=== PATIENT | female | born 1970 | race Caucasian/White ===

== ENCOUNTER 2019-02-08 16:34 | Outpatient (CLI) | payer OTHER ==
--- NOTE | 2019-02-09 14:23 | MRI Report ---
Reason: CARPAL TUNNEL SYNDROME, UNSPECIFIED UPPER LIMB Procedure Date: 02/08/2019 Accession Number: [id number] / [id number] Procedure: MRI - Wrist LT W/O CPT Code: FULL RESULT: EXAM: LEFT WRIST MRI WITHOUT CONTRAST EXAM DATE: 02/08/2019 05:45 PM. CLINICAL HISTORY: Carpal tunnel syndrome, unspecified upper limb. COMPARISON: None. TECHNIQUE: Multiplanar, multisequence T1-weighted and fluid-sensitive sequences of the wrist without contrast. Other: None. FINDINGS: Bones: No fractures or subluxations. No marrow edema. No bone lesions. Cartilage: There is subchondral cyst formation in the distal pole of the scaphoid at the triscaphe joint consistent with moderate osteoarthritis. The hyaline cartilage appears otherwise unremarkable. The triangular fibrocartilage complex is unremarkable. Ligaments: The scapholunate and lunotriquetral ligaments are intact. The visualized other intrinsic, extrinsic and collateral ligaments are unremarkable. Tendons: The extensor carpi ulnaris appears slightly thickened suggestive of low-grade tendinosis. The remaining tendons appear unremarkable. Musculature: No edema or fatty atrophy. Other: The contents of the carpal tunnel, including the median nerve, are unremarkable. Guyons canal is unremarkable. No ganglion cysts. No joint effusions. The subcutaneous tissues are unremarkable. IMPRESSION: 1. Moderate osteoarthritis of the triscaphe joint. 2. Possible low-grade tendinosis of the extensor carpi ulnaris. RADIA
--- NOTE | 2019-02-09 14:23 | MRI Report ---
Reason: CARPAL TUNNEL SYNDROME, UNSPECIFIED UPPER LIMB Procedure Date: 02/08/2019 Accession Number: [id number] / [id number] Procedure: MRI - Hand LT W/O CPT Code: FULL RESULT: EXAM: LEFT HAND MRI WITHOUT CONTRAST EXAM DATE: 02/08/2019 06:06 PM. CLINICAL HISTORY: Carpal tunnel syndrome, unspecified upper limb. COMPARISON: None. TECHNIQUE: Multiplanar, multisequence T1-weighted and fluid-sensitive sequences of the hand without contrast. Other: None. FINDINGS: Bones: No fractures or subluxations. No marrow edema. No bone lesions. Cartilage: The articular cartilage is unremarkable. Ligaments: The visualized collateral ligaments are intact. Tendons: The flexor and extensor tendons are unremarkable. Musculature: No edema or fatty atrophy. Other: No joint effusions. There is mild subcutaneous edema overlying the dorsal aspect of the first metacarpal phalangeal joint and metacarpal shaft. The finding is nonspecific, and may indicate trauma or inflammation. IMPRESSION: 1. Subcutaneous edema in the region of interest, with no visible mass. RADIA
== END 2019-02-08 16:35 | disposition home or self-care (01) ==
LOC: DI 16:34
PROVIDERS: ATTEND Family Medicine
DX: G56.02 Carpal tunnel syndrome, left upper limb (principal); M19.032 Primary osteoarthritis, left wrist; M25.442 Effusion, left hand

== ENCOUNTER 2019-06-22 06:12 | Day surgery (SDC) | payer OTHER ==
[2019-06-22] MEDS ORDERED: MIDAZOLAM 2 MG/2 ML VIAL IVP ONE (06:13)
[2019-06-22] MEDS ORDERED: KETOROLAC 30 MG/ML VIAL IVP ONE (06:13)
[2019-06-22] MEDS ORDERED: PROPOFOL 200 MG/20 ML VIAL IVP ONE (06:13)
[2019-06-22] MEDS ORDERED: fentaNYL 100 MCG/2 ML VIAL IVP ONE (06:13)
[2019-06-22] MEDS ORDERED: CEFAZOLIN SODIUM IN 0.9 % NACL 2 GM/100 ML BAG IV ONE (06:33)
[2019-06-22] MEDS ORDERED: LACTATED RINGERS 1,000 ML IV ONE (06:54)
--- NOTE | 2019-06-22 07:13 | ANESTHESIA ---
Pre-Anesthesia VS, & Labs - Diagnosis Left carpal tunnel syndrome - Procedure Left right carpal tunnel release Vital Signs: Temp Pulse Resp BP Pulse Ox 37 C 96 18 135/85 H 95 06/22/19 06:25 06/22/19 06:25 06/22/19 06:25 06/22/19 06:25 06/22/19 06:25 Height 5 ft 2 in Weight (kg) 65.3 kg - NPO >8 hours - Is Patient ?: Waiver signed - Lab Results Current Lab Results: Laboratory Tests 06/22/19 06:49: POC Whole Bld Glucose 260 H Home Medications and Allergies Home Medications: Ambulatory Orders Acetaminophen [Tylenol] 650 mg VT 06/22/19 raNITIdine HCl [Zantac] 150 mg PO 06/22/19 Paroxetine HCl [Paxil] 1 tab PO DAILY 04/15/16 Simvastatin [Zocor] 1 tab PO DAILY 04/15/16 metFORMIN [Glucophage] 500 mg PO BID 04/15/16 Acetaminophen [Tylenol] 650 mg VT 06/22/19 raNITIdine HCl [Zantac] 150 mg PO 06/22/19 Allergies/Adverse Reactions: Allergies Allergy/AdvReac Type Severity Reaction Status Date / Time No Known Drug Allergies Allergy Verified 04/15/16 20:12 Anes History & Medical History - Anesthetic History Anesthesia Complications: reports: No previous complications - Medical History Cardiovascular: reports: High cholesterol Pulmonary: reports: None Gastrointestinal: reports: None Urinary: reports: None Neuro: reports: None Musculoskeletal: reports: None Endocrine/Autoimmune: reports: Type 2 diabetes Blood Disorders: reports: None Skin: reports: None Smoking Status: Current every day smoker (1 pack per day for 30 years) Psychosocial: reports: Anxiety, Alcohol (1-2 drinks per week) - Surgical History Eyes Ears Nose Throat (EENT): Tonsil/Adenoidectomy Gynecologic: section, Endometrial ablation Orthopedic: Carpal Tunnel surgery Exam General: Alert, Oriented x3, Cooperative, No acute distress Dental: WNL Mouth Openin Fingerbreadth Neck Mobility: Normal Mallampati classification: I Thyromental Distance: 4-6 cm Respiratory: Lungs clear, Normal breath sounds, No respiratory distress, No accessory muscle use Cardiovascular: Regular rate, Normal S1, Normal S2, No murmurs Mental/Cognitive Status: Alert/Oriented X3, Normal for patient Plan Anesthesia Type: General Consent for Procedure(s) Verified and Reviewed: Yes Code Status: Attempt Resuscitation ASA classification: 2-Mild systemic disease Is this case an emergency?: No
[2019-06-22] MEDS ORDERED: BUPIVACAINE 0.25% PF 30 ML VIAL ONE (07:24)
[2019-06-22] MEDS ORDERED: BUPIVACAINE 0.25% PF 30 ML VIAL SUBQ ONE (08:02)
[2019-06-22] MEDS ORDERED: oxyCODONE 5 MG TABLET PO PRN (08:20)
[2019-06-22] MEDS ORDERED: ONDANSETRON 4 MG/2 ML VIAL IVP PRN (08:20)
--- NOTE | 2019-06-22 08:22 | OPERATIVE REPORT ---
Operative Report - Other Other Information/Narrative: Date of Surgery: 22 June 2019 Pre-Op Diagnosis: Left carpal tunnel syndrome Procedure: Left open carpal tunnel release Postop Diagnosis: Left carpal tunnel syndrome Primary Surgeon: Avelino Galvez Secondary Surgeon: Morro Stewart Complications: None Tourniquet Time: 4 minutes EBL: 2 cc Indication For Surgery: 49-year-old female with long-standing history of bilateral carpal tunnel syndrome who is status post open release on the right many years ago. She now has numbness and tingling in the median nerve distribution that is painful and bothersome and no longer responsive to splinting and other nonoperative measures. The risks, benefits, and alternatives were discussed. Risks include pain, bleeding, infection, damage to nearby structures, numbness, pillar pain, lack of symptom relief, need for further surgery, DVT, PE, stroke, and . Written consent was obtained. The patient was met in the preoperative holding on the day of the procedure. Operative extremity was signed. Consent was verified. They desire to proceed. They were brought to the operating room and placed in the supine position. A well-padded forearm tourniquet was applied. They were prepped and draped in the standard fashion. A surgical timeout was held will be confirmed the patient procedure, identity, allergies, antibiotics, images and laterality. All were in agreement we proceeded. An Esmarch was used to exsanguinate the limb and the tourniquet was elevated to 250 mmHg. A 3cm longitudinal incision was made in line with the ulnar border of the ring finger starting at Min's Cardinal line distally. This was just radial to the hook of the hamate. Bipolar electrocautery was used at the skin edge. Sharp dissection was brought down through the palmar fascia. Retractors were placed. The transverse carpal ligament was identified and a knife was used to separate it. The contents of the carpal tunnel were seen. Knife dissection was used to release the ligament as far proximal as could be visualized. Long handled Metzenbaum scissors were then used to create a pocket just superficial to the transverse carpal ligament and a retractor was placed. I then used a long handled Metzenbaum with the tips pointed ulnarly to complete the release 2 cm into the antebrachial fascia. Retractors were then moved distally and I confirmed complete release in the appearance of fat in the palm. A freer elevator was used to confirm complete release both proximally and distally. The wound was packed with a moist gauze and the tourniquet was deflated. After holding for 3 minutes the gauze was removed and bleeding was coming from the skin edge. Bleeding was controlled with bipolar electrocautery. The wound was closed with 3-0 nylon in a horizontal mattress configuration. 3 cc of local anesthetic was placed. A sterile bulky dressing was applied. He was awakened and transferred to the recovery room.
[2019-06-22 09:20] VITALS: BP 106/69
== END 2019-06-22 06:13 | disposition home or self-care (01) ==
LOC: SDS 06:12
PROVIDERS: ATTEND Orthopaedic Surgery
PROC: 01N50ZZ Release Median Nerve, Open Approach (ICD-10-PCS; principal; 2019-06-22 07:30)
DX: G56.02 Carpal tunnel syndrome, left upper limb (principal); E11.9 Type 2 diabetes mellitus without complications; M18.12 Unilateral primary osteoarthritis of first carpometacarpal joint, left hand; F17.210 Nicotine dependence, cigarettes, uncomplicated
CPT/HCPCS: 64721; A9270; J0690; J7120

== ENCOUNTER 2021-06-26 15:31 | Outpatient (CLI) | payer OTHER ==
--- NOTE | 2021-07-01 08:51 | Mammography Report ---
BILATERAL DIGITAL SCREENING MAMMOGRAM 3D/2D: 06/26/2021 CLINICAL: Routine screening. Comparison is made to exams dated: 12/29/2016 ultrasound biopsy, 12/29/2016 mammogram - [facility], 12/17/2016 ultrasound, 05/18/2016 ultrasound, 05/18/2016 mammogram, and 05/14/2016 mammogram - [facility]. There are scattered fibroglandular elements in both breasts. There is a biopsy clip in the right breast. No significant masses, calcifications, or other findings are seen in either breast. There has been no significant interval change. IMPRESSION: NEGATIVE There is no mammographic evidence of malignancy. A 1 year screening mammogram is recommended. This exam was interpreted at Station ID: [id number]. NOTE: For mammograms, a report in lay terms will be sent to the patient. Approximately 15% of breast malignancies will not be visualized mammographically. In the management of a palpable breast mass, a negative mammogram must not discourage biopsy of a clinically suspicious lesion. Electronically Signed By: John Campbell M.D. [email or web address]:06/30/2021 14:52:00 ACR BI-RADS Category 1: Negative 3341F PARENCHYMAL PATTERN: (A) - The breast(s) demonstrate(s) scattered fibroglandular densities. BI-RADS CATEGORY: (1) - 1 RECOMMENDATION: (ANNUAL) - Recommend routine annual screening mammography. [id number] 1 year screening LATERALITY: (B)
== END 2021-06-26 15:32 | disposition home or self-care (01) ==
LOC: DI.N 15:31
DX: Z12.31 Encounter for screening mammogram for malignant neoplasm of breast (principal)